=== PATIENT | male | born 1950 | race Caucasian/White ===

== ENCOUNTER 2016-08-16 09:02 | Day surgery (SDC) | payer MEDICARE, OTHER ==
[~2016-08-16 09:02] MED LIST: Lactated Ringers 1,000 ML IV SCH; Sodium Chloride 0.9% 5 ML Syringe FLUSH PRN
[2016-08-16] MEDS ORDERED: fentaNYL 100 MCG/2 ML SDV ONE (09:37)
[2016-08-16] MEDS ORDERED: Propofol 200 MG/20 ML SDV ONE (09:37)
[2016-08-16] MEDS ORDERED: Midazolam 1 MG/ML 2 ML SDV ONE (09:37)
[2016-08-16] MEDS ORDERED: Ketamine 500 mg/10 ML MDV ONE (09:37)
[2016-08-16] MEDS ORDERED: Neostigmine Methylsulfate 10 MG/10 ML MDV ONE (09:37)
[2016-08-16] MEDS ORDERED: Lidocaine 2% Jelly 5 ML Tube ONE (10:32)
[2016-08-16] MEDS ORDERED: ceFAZolin 1 GM Vial ONE (10:41)
[2016-08-16] MEDS ORDERED: Propofol 200 MG/20 ML SDV IV ONE (11:20)
[2016-08-16] MEDS ORDERED: Ondansetron 4 MG/2 ML SDV IV ONE (11:20)
[2016-08-16] MEDS ORDERED: Midazolam 1 MG/ML 2 ML SDV IV ONE (11:20)
[2016-08-16] MEDS ORDERED: ceFAZolin 1 GM Vial IV ONE (11:20)
[2016-08-16] MEDS ORDERED: fentaNYL 100 MCG/2 ML SDV IV ONE (11:20)
[2016-08-16] MEDS ORDERED: Lidocaine 2% Jelly 10 ML Urojet ONE (11:45)
--- NOTE | 2016-08-16 11:56 | PCM.OPNOTE ---
- General Post-Op/Procedure Note Date of Surgery/Procedure: 08/16/16 Pre Op Diagnosis: Urinary symptom suggestive of frequency dysuria and a feeling of obstruction with suprapubic catheter in place for neurogenic bladder. Post-Op Diagnosis: Fairly normal cystoscopy except for moderate trilobar enlargement of the prostate. Suprapubic catheter is in place. Primary Surgeon: Brenda Ferreira Condition: Good Free Text/Narrative:: Dictated
[2016-08-16 15:02] VITALS: BP 118/73
--- NOTE | 2016-08-17 09:11 | OR ---
DATE OF SURGERY: 08/16/2016 SURGEON: Brenda Ferreira MD PREOPERATIVE DIAGNOSIS: The patient has a suprapubic catheter in place. The patient has frequent episodes of dysuria and frequency urination and urinary tract infection. Cystoscopy is being accomplished to rule out pathology within the bladder. DESCRIPTION OF PROCEDURE: Informed consent was obtained from the patient. All possible complications discussed with the patient, taken to OR and given a satisfactory anesthetic. He was then kept in lithotomy position. His genitals were thoroughly prepped and draped in usual fashion. Cystoscopy was accomplished using a 17-S[place] Arabian obturator sheath and Anam Zeiss cystoscope. There was evidence of moderate trilobar enlargement of prostate. There was evidence of previous TURP. The scope was introduced into the bladder. The bladder mucosa was completely normal. The indwelling Gonzalez catheter was seen. No complications encountered. There was no significant debris or any significant infection. Scope was then removed. The patient tolerated procedure well. FINAL DIAGNOSIS: Fairly normal cystoscopy. The patient symptoms of frequency, urgency, and feeling like something is stuck in the bladder are not necessarily coming from the urological system. One has to make sure that the patient's bowels are being evacuated regularly especially since he is on opioids etc. There may be some rectal impaction on the bladder. /[id number]/MODL
== END 2016-08-16 13:55 ==
LOC: KA.SDS 09:02
PROVIDERS: ATTEND Family Medicine
DX: N40.1 Benign prostatic hyperplasia with lower urinary tract symptoms (principal); R35.0 Frequency of micturition; R30.0 Dysuria; R82.71 Bacteriuria; I10 Essential (primary) hypertension; Z79.82 Long term (current) use of aspirin; Z79.899 Other long term (current) drug therapy
CPT/HCPCS: 52000; J0690; J2250; J2405; J2704; J3010; J7120; 00910

== ENCOUNTER 2018-04-22 10:53 | Emergency (ER) | payer MEDICARE, MEDICAID ==
[2018-04-22 11:09] VITALS: BP 135/66
[2018-04-22] MEDS ORDERED: Sodium Chloride 0.9% 10 ML Syringe FLUSH PRN (11:29)
[2018-04-22] MEDS ORDERED: Albuterol/Ipratropium 3.0-0.5 MG/3 ML Neb Soln NEB ONE (11:51)
--- NOTE | 2018-04-22 12:41 | EDM.PDOC ---
ED HPI GENERAL MEDICAL PROBLEM - General Chief Complaint: General Stated Complaint: LOW SATS.. Time Seen by Provider: 04/22/18 11:23 Source of Information: Reports: Patient History Limitations: Reports: No Limitations - History of Present Illness INITIAL COMMENTS - FREE TEXT/NARRATIVE: Patient is 68-year-old gentleman who presents to the emergency department from nursing facility with a complaint of shortness of breath, sounds on the left, and low oxygen saturation. Patient underwent left lung needle biopsy and subsequent anterior smallbore chest tube insertion at [facility] on 2018. Chest tube was removed yesterday and patient was discharged. This morning per retirement nurse, patient felt short of breath, oxygen saturations were noted to be high 80s, and left lung sounds were diminished. Patient was therefore transferred to ER. Patient denies chest pain, headache, fever, nausea, vomiting, diarrhea, or abdominal pain Onset: Today Duration: Hour(s): Location: Reports: Chest Severity: Mild Improves with: Reports: None Worsens with: Reports: None Context: Denies: Trauma Associated Symptoms: Reports: Shortness of Breath - Related Data Allergies Allergy/AdvReac Type Severity Reaction Status Date / Time No Known Drug Allergies Allergy Unknown Other Verified 04/22/18 11:09 Home Meds: Home Meds Allopurinol [Zyloprim] 300 mg PO DAILY 03/16/13 [History] Carvedilol 12.5 mg PO BIDMEALS 03/16/13 [History] Citalopram [Citalopram HBr] 20 mg PO DAILY 03/16/13 [History] Folic Acid 1 mg PO DAILY 03/16/13 [History] Multivitamin with Minerals [Multiple Vitamin] 1 tab PO BEDTIME 03/16/13 [History ] amLODIPine Besylate [Norvasc] 2.5 mg PO DAILY 03/16/13 [History] Cholecalciferol (Vitamin D3) [Vitamin D3] 2,000 unit PO DAILY 06/06/13 [History] Nitrofurantoin Monohyd/M-Cryst [Macrobid 100 mg Capsule] 100 mg PO DAILY [History] Calcium Carbonate [Tums Extra Strength] 750 mg PO BIDMEALS 05/13/15 [History] Gabapentin [Neurontin] 900 mg PO BEDTIME 01/30/16 [History] Sennosides [Senna] 8.6 mg PO BID 01/30/16 [History] Aspirin 81 mg PO BEDTIME 02/04/16 [History] Donepezil [Aricept] 5 mg PO BEDTIME 10/20/16 [History] Lenalidomide [Revlimid] 5 mg PO ASDIRECTED 10/20/16 [History] Gabapentin [Neurontin] 300 mg PO QAM 06/29/17 [History] Polyethylene Glycol 3350 [MiraLAX] 17 gm PO Q2D 06/29/17 [History] fentaNYL [Duragesic] 75 mcg TOP Q72H 06/29/17 [History] Acetaminophen [Arthritis Pain Relief] 650 mg PO BID 03/06/18 [History] Lubiprostone [Amitiza] 8 mcg PO BIDMEALS 03/06/18 [History] traMADol [Ultram] 50 mg PO Q6H PRN 03/06/18 [History] Past Medical History - Past Health History Medical/Surgical History: Denies Medical/Surgical History HEENT History: Reports: Hard of Hearing, Impaired Vision Other HEENT History: glasses Cardiovascular History: Reports: High Cholesterol, Hypertension Respiratory History: Reports: COPD, Pneumonia, Recurrent, SOB Gastrointestinal History: Reports: Chronic Constipation, GERD, Hemorrhoids Genitourinary History: Reports: Pyelonephritis, Other (See Below) Other Genitourinary History: suprapubic cath due to history of stroke. 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 - Infectious Disease History Infectious Disease History: Reports: Chicken Pox, Influenza, Measles - Past Surgical History HEENT Surgical History: Reports: None Cardiovascular Surgical History: Reports: None Respiratory Surgical History: Reports: None GI Surgical History: Reports: Colonoscopy Male Surgical History: Reports: Suprapubic Catheter Placement Other Male Surgeries/Procedures: suprapubic cath Neurological Surgical History: Reports: None Musculoskeletal Surgical History: Reports: Other (See Below) Other Musculoskeletal Surgeries/Procedures:: Foot drop to left with brace Social & Family History - Family History Family Medical History: Noncontributory Cardiac: Reports: CA Neurological: Reports: Alzheimers Disease, Dementia Hematologic: Reports: None Immunologic: Reports: None Dermatologic: Reports: None Oncologic: Reports: None - Caffeine Use Caffeine Use: Reports: Coffee, Soda - Living Situation & Occupation Living situation: Reports: Occupation: Disabled ED ROS GENERAL - Review of Systems Review Of Systems: ROS reveals no pertinent complaints other than HPI. Constitutional: Reports: No Symptoms HEENT: Reports: No Symptoms Respiratory: Reports: Shortness of Breath, Pleuritic Chest Pain Cardiovascular: Reports: No Symptoms Endocrine: Reports: No Symptoms GI/Abdominal: Reports: No Symptoms : Reports: No Symptoms Musculoskeletal: Reports: No Symptoms Skin: Reports: No Symptoms Neurological: Reports: No Symptoms Psychiatric: Reports: No Symptoms Hematologic/Lymphatic: Reports: No Symptoms Immunologic: Reports: No Symptoms ED EXAM, GENERAL - Physical Exam Exam: See Below Exam Limited By: No Limitations General Appearance: Alert, WD/WN, No Apparent Distress Throat/Mouth: Normal Inspection, Normal Oropharynx, No Airway Compromise Head: Atraumatic, Normocephalic Neck: Normal Inspection, Supple, Non-Tender, Full Range of Motion, Other (No crepitus above clavicles) Respiratory/Chest: No Respiratory Distress, Decreased Breath Sounds (On left), Wheezing (Left long. Apical), Other (There is a small 2 cm incision at the left second intercostal space, which was site of Seldinger Small-Bore Chest Tube previously placed. No crepitus at site noted) GI/Abdominal: Normal Bowel Sounds, Soft, Non-Tender Extremities: Normal Inspection Neurological: Alert, Oriented, Normal Cognition Psychiatric: Normal Affect, Normal Mood Skin Exam: Warm, Dry, Intact, Normal Color, No Rash ED GENERAL MEDICAL PROCEDURES - Additional/Other Procedure(s) Other (Free Text) Procedure(s): Under sterile techniques, left axilla was prepped and draped. 1% Percent lidocaine with epinephrine on 25-gauge needle was used on the insertion path of the chest tube. A 3 cm transverse incision was made through the overlying subcutaneous tissue and intercostal space. Blunt dissection with Nicole clamp was performed on the superior aspect of the rib. Lateral space was entered and confirmed with finger. Chest tube was inserted into the pleural space, and confirmed with chest tube condensation. Chest tube was secured to skin with 3- 0 nylon suture. Clamp was removed and chest tube was attached to dry suction. Petroleum gauze and 4 x 4 gauze applied. Patient tolerated the procedure well Course - Vital Signs Last Recorded V/S: Last Vital Signs Temp 98.5 F 04/22/18 11:04 Pulse 70 04/22/18 11:04 Resp 20 04/22/18 11:04 BP 135/66 04/22/18 11:04 Pulse Ox 91 L 04/22/18 11:04 - Orders/Labs/Meds Orders: Active Orders 24 hr Category Date Time Status Peripheral IV Care [RC] . DIRECTED Care 04/22/18 11:29 Ordered RT Aerosol Therapy [RC] ASDIRECTED Care 04/22/18 11:51 Ordered Chest w Cont [CT] Stat Exams 04/22/18 11:24 Ordered Sodium Chloride 0.9% [Saline Flush] Med 04/22/18 11:29 Ordered 10 ml FLUSH Q8HR PRN Peripheral IV Insertion Adult [OM.PC] Routine Oth 04/22/18 11:29 Ordered Medication Orders Sodium Chloride (Saline Flush) 10 ml FLUSH Q8HR PRN PRN Reason: keep vein open Meds: Medications Generic Name Dose Route Start Last Admin Trade Name Freq PRN Reason Stop Dose Admin Sodium Chloride 10 ml 04/22/18 11:29 Saline Flush FLUSH Q8HR PRN keep vein open Discontinued Medications Generic Name Dose Route Start Last Admin Trade Name Freq PRN Reason Stop Dose Admin Albuterol/Ipratropium 3 ml 04/22/18 11:51 Duoneb 3.0-0.5 Mg/3 Ml NEB 04/22/18 11:52 ONETIME ONE - Radiology Interpretation Free Text/Narrative:: CT chest with IV contrast shows large left pneumothorax with evidence of early tension - Re-Assessments/Exams Free Text/Narrative Re-Assessment/Exam: 04/22/18 13:[address] Guallpa from [facility]. Advised post chest tube insertion to transfer patient there via [facility] ambulance 04/22/18 13:20 Lab work not performed as blood work was ready obtained yesterday at [facility] Chest tube was placed and confirmed with one view chest x-ray. Patient was transferred via [facility] to [facility]. Patient tolerated procedure well 04/22/18 14:58 Departure - Departure Time of Disposition: 14:58 Disposition: DC/Tfer to Acute Hospital 02 Condition: Serious Clinical Impression: Tension pneumothorax - Discharge Information Referrals: Mohamud Ring [employer] [Primary Care Provider] - - My Orders Last 24 Hours: My Active Orders 04/22/18 11:24 Chest w Cont [CT] Stat 04/22/18 11:29 Peripheral IV Care [RC] . DIRECTED Sodium Chloride 0.9% [Saline Flush] 10 ml FLUSH Q8HR PRN Peripheral IV Insertion Adult [OM.PC] Routine 04/22/18 11:51 RT Aerosol Therapy [RC] ASDIRECTED - Assessment/Plan Last 24 Hours: My Active Orders 04/22/18 11:24 Chest w Cont [CT] Stat 04/22/18 11:29 Peripheral IV Care [RC] . DIRECTED Sodium Chloride 0.9% [Saline Flush] 10 ml FLUSH Q8HR PRN Peripheral IV Insertion Adult [OM.PC] Routine 04/22/18 11:51 RT Aerosol Therapy [RC] ASDIRECTED
[2018-04-22] MEDS: Iopamidol 755 Mg/ML 75 ML Bottle IVPUSH ONE ×3 (12:43→12:48)
[2018-04-22] MEDS: Sodium Chloride 0.9% 50 ML IV ONE ×2 (12:43→12:49)
--- NOTE | 2018-04-22 12:43 | CT ---
[id number] CT/CT Chest W IV EXAM: CHEST CT WITH CONTRAST INDICATION: Post chest tube removal with complicated left lung. COMPARISON: January 15, [address] DISCUSSION: There is a large left-sided pneumothorax with rightward shift of the mediastinum consistent with developing tension. There is significant associated volume loss in the left lung limiting assessment of the parenchyma. On the right there is subsegmental atelectasis scattered throughout the lung and there are mild to moderate apical predominant emphysematous changes. Coronary calcifications. Normal heart size. Multiple right renal cysts. Imaged upper abdomen is otherwise unremarkable. There are numerous scattered lytic bone lesions some which have sclerotic rims which are similar to the previous examination. Multiple thoracic compression fractures ranging from mild to moderate are also similar to the prior study as are multiple chronic rib fractures. Results called at time of dictation. IMPRESSION: 1. Large left pneumothorax with evidence of early tension. Mc Uriostegui MD 04/22/18 [id number] Thank you for allowing us to participate in the care of your patient.
[2018-04-22] MEDS ORDERED: Iopamidol 755 Mg/ML 75 ML Bottle IVPUSH ONE (12:45)
[2018-04-22] MEDS ORDERED: fentaNYL 100 MCG/2 ML SDV ONE (13:39)
[2018-04-22] MEDS ORDERED: Midazolam 1 MG/ML 2 ML SDV ONE (13:40)
[2018-04-22] MEDS ORDERED: Ketamine 500 mg/10 ML MDV ONE (13:44)
[2018-04-22] MEDS ORDERED: Lidocaine 1% with EPINEPHrine 1:100,000 20 ML MDV ONE (13:51)
[2018-04-22] MEDS ORDERED: Ketamine 500 mg/10 ML MDV IV ONE (14:00)
[2018-04-22] MEDS ORDERED: fentaNYL 100 MCG/2 ML SDV IV ONE (14:00)
[2018-04-22] MEDS ORDERED: Midazolam 1 MG/ML 2 ML SDV IV ONE (14:00)
--- NOTE | 2018-04-22 15:13 | CR ---
[id number] RAD/RAD Chest Portable EXAM: PORTABLE CHEST INDICATION: Chest tube placement. COMPARISON: CT earlier same date. DISCUSSION: Interval left thoracostomy tube placement tip positioned over the medial aspect of the left hemithorax. No significant residual pneumothorax or mediastinal shift is identified on this portable examination. The lungs are hypoinflated with left greater than right base subsegmental atelectasis. Chronic left rib fractures are unchanged. IMPRESSION: 1. Left thoracostomy tube placement with resolution of a left-sided pneumothorax. Mc Uriostegui MD 04/22/18 [id number] Thank you for allowing us to participate in the care of your patient.
[2018-04-22] MEDS ORDERED: Lidocaine 1% with EPINEPHrine 1:100,000 20 ML MDV INJECT ONE (21:03)
== END 2018-04-22 15:00 ==
LOC: KA.ED 10:53
DX: J93.0 Spontaneous tension pneumothorax (principal); E78.00 Pure hypercholesterolemia, unspecified; I10 Essential (primary) hypertension; J44.9 Chronic obstructive pulmonary disease, unspecified; K21.9 Gastro-esophageal reflux disease without esophagitis; Z86.73 Personal history of transient ischemic attack (TIA), and cerebral infarction without residual deficits; F32.9 Major depressive disorder, single episode, unspecified; Z79.82 Long term (current) use of aspirin; Z79.891 Long term (current) use of opiate analgesic; Z79.899 Other long term (current) drug therapy; Z98.890 Other specified postprocedural states; Z87.891 Personal history of nicotine dependence
CPT/HCPCS: 71045; 71260; 99284; 99285; J2250; J3010; J7050; J7620-GY; Q9967

== ENCOUNTER 2022-01-11 18:00 | Inpatient (IN) | payer MEDICARE, MEDICAID ==
[2022-01-11] MEDS ORDERED: cefTRIAXone 2 GM Vial IVPUSH ONE (19:05)
[2022-01-11] MEDS ORDERED: Azithromycin 500 MG in Sodium Chloride 0.9% 250 ML IV ONE (19:15)
[2022-01-11] MEDS ORDERED: Sodium Chloride 0.9% 10 ML Syringe IV PRN (22:00)
[2022-01-11] MEDS ORDERED: Carvedilol 12.5 MG Tab PO ONE (22:50)
[2022-01-11] MEDS ORDERED: fentaNYL 75 MCG/HR Transdermal Patch TRDERM ONE (22:50)
[2022-01-11] MEDS ORDERED: Gabapentin 300 MG Cap PO ONE (22:50)
[2022-01-11] MEDS ORDERED: Donepezil 10 MG Tab PO ONE (22:50)
[2022-01-11] MEDS ORDERED: Sodium Chloride 0.9% 500 ML IV ONE (22:50)
[2022-01-11] MEDS ORDERED: Baclofen 10 MG Tab PO ONE (22:50)
[2022-01-12] MEDS ORDERED: Folic Acid 1 MG Tab PO ONE (10:15)
[2022-01-12] MEDS ORDERED: Citalopram 20 MG Tab PO ONE (10:15)
[2022-01-12] MEDS ORDERED: Allopurinol 100 MG Tab PO ONE (10:15)
[2022-01-12] MEDS ORDERED: amLODIPine 2.5 MG Tab PO ONE (10:15)
[2022-01-12] MEDS ORDERED: Enoxaparin 40 MG/0.4 ML Syringe SUBCUT ONE (13:45)
[2022-01-12] MEDS ORDERED: cefTRIAXone 1 GM Vial IVPUSH ONE (19:45)
[2022-01-12] MEDS ORDERED: Azithromycin 500 MG in Sodium Chloride 0.9% 250 ML IV ONE (19:45)
[2022-01-12] MEDS ORDERED: Nystatin Topical Powder 15 GM Bottle TOP ONE (21:00)
[2022-01-12] MEDS ORDERED: Donepezil 10 MG Tab PO ONE (21:00)
[2022-01-13] MEDS ORDERED: Pantoprazole 20 MG Tab, Delayed Release PO ONE (09:50)
[2022-01-13] MEDS ORDERED: Albuterol/Ipratropium 3.0-0.5 MG/3 ML Neb Soln INH ONE (11:45)
[2022-01-13] MEDS ORDERED: Potassium Chloride 20 MEQ Tab.ER PO ONE (13:40)
[2022-01-13] MEDS ORDERED: Sodium Chloride 0.9% 50 ML IV ONE (19:15)
[2022-01-28] MEDS ORDERED: Donepezil 10 MG Tab PO ONE (22:50)
[2022-01-29 11:01] LABS: ANION GAP 12.9 mmol/L (5-15); CHLORIDE,CL 100 mmol/L (98-115); ESTIMATED GFR 66 mL/min (>=60); SODIUM,NA 138 mmol/L (136-145)
[2022-01-29 12:56] LABS: ANION GAP 10.2 mmol/L (5-15); CHLORIDE,CL 102 mmol/L (98-115); ESTIMATED GFR 77 mL/min (>=60); SODIUM,NA 139 mmol/L (136-145)
[2022-01-31 11:08] LABS: ANION GAP 9.9 mmol/L (5-15); CHLORIDE,CL 101 mmol/L (98-115); SODIUM,NA 137 mmol/L (136-145)
[2022-01-31 11:09] LABS: ESTIMATED GFR 80 mL/min (>=60)
[2022-01-31 11:53] LABS: CHLORIDE,CL 103 mmol/L (98-115); SODIUM,NA 139 mmol/L (136-145)
[2022-01-31 11:57] LABS: ANION GAP 10.4 mmol/L (5-15); ESTIMATED GFR 91 mL/min (>=60)
== END 2022-01-14 13:14 | DRG 193 ==
LOC: KA.ED 18:00 → KA.ZCENSUS 20:05
PROVIDERS: ADMIT Physician Assistant Surgical; ATTEND Student in an Organized Health Care Education/Training Program
DX: J18.9 Pneumonia, unspecified organism (principal); J96.01 Acute respiratory failure with hypoxia; N39.0 Urinary tract infection, site not specified; C90.00 Multiple myeloma not having achieved remission; C90.30 Solitary plasmacytoma not having achieved remission; C34.12 Malignant neoplasm of upper lobe, left bronchus or lung; F33.9 Major depressive disorder, recurrent, unspecified; N13.8 Other obstructive and reflux uropathy; D72.829 Elevated white blood cell count, unspecified; Z66 Do not resuscitate; R79.89 Other specified abnormal findings of blood chemistry; E87.6 Hypokalemia; I10 Essential (primary) hypertension; M1A.00X0 Idiopathic chronic gout, unspecified site, without tophus (tophi); F03.90 Unspecified dementia, unspecified severity, without behavioral disturbance, psychotic disturbance, mood disturbance, and anxiety; K59.03 Drug induced constipation; K21.9 Gastro-esophageal reflux disease without esophagitis; N40.3 Nodular prostate with lower urinary tract symptoms; Z96.0 Presence of urogenital implants; G89.29 Other chronic pain; M85.80 Other specified disorders of bone density and structure, unspecified site; Z87.440 Personal history of urinary (tract) infections; Z86.73 Personal history of transient ischemic attack (TIA), and cerebral infarction without residual deficits
CPT/HCPCS: 36415; 71045; 80048; 80053; 81001; 83605; 83735; 83880; 84484; 85025; 86140; 87040; 87086; 87088; 93005; 93010; 96374; 96375; 99284; 99285-25; A9270-GY; J0456; J0696; J1650; J7040; J7050; J7620-GY

== ENCOUNTER 2023-07-08 19:06 | Emergency (ER) | payer MEDICARE ==
[2023-07-08] MEDS: Albuterol/Ipratropium 3.0-0.5 MG/3 ML Neb Soln NEB ONE ×2 (19:20→21:27)
[2023-07-08] MEDS: Albuterol/Ipratropium 3.0-0.5 MG/3 ML Neb Soln ONE (19:20)
[2023-07-08] MEDS ORDERED: Sodium Chloride 0.9% 10 ML Syringe FLUSH PRN (19:26)
[2023-07-08 19:48] LABS: BASOPHILS ABSOLUTE AUTO 0.06 10^3/uL (0.00-0.10); BASOPHILS PERCENT AUTO 0.5 % (0.0-1.0); EOSINOPHILS ABSOLUTE AUTO 0.45 10^3/uL (0.10-0.30); EOSINOPHILS PERCENT AUTO 3.4 % (1.0-3.0); HEMATOCRIT 43.5 % (40.0-52.0); HEMOGLOBIN 14.1 g/dL (13.0-17.0); IMMATURE GRAN ABSOLUTE AUTO 0.12 10^3/uL (0.00-0.50); IMMATURE GRAN PERCENT AUTO 0.9 % (0.0-5.0); LYMPHOCYTES ABSOLUTE AUTO 2.62 10^3/uL (1.00-4.00); MEAN CORPUSCULAR HEMOGLOBIN 32.1 pg (27.0-31.0); MEAN CORPUSCULAR HGB CONC 32.4 g/dL (32.0-36.0); MEAN CORPUSCULAR VOLUME 99.1 fL (82.0-92.0); MEAN PLATELET VOLUME 9.8 fL (7.4-10.4); MONOCYTES ABSOLUTE AUTO 2.02 10^3/uL (0.10-0.80); MONOCYTES PERCENT AUTO 15.4 % (2.0-8.0); NEUTROPHILS ABSOLUTE AUTO 7.82 10^3/uL (2.50-7.00); NEUTROPHILS PERCENT AUTO 59.8 % (50.0-70.0); PLATELET COUNT,PLT 530 10^3/uL (150-400); RED BLOOD CELL COUNT 4.39 10^6/uL (4.50-6.00); RED CELL DISTRIBUTION WIDTH 14.4 % (11.5-14.5); WHITE BLOOD CELL COUNT,WBC 13.09 10^3/uL (5.00-10.00)
[2023-07-08] MEDS: Acetylcysteine 20% 200 MG/ML 30 ML Nebulizer Soln SDV NEB SCH (20:01)
[2023-07-08] MEDS: Sodium Chloride 0.9% 1,000 ML IV ONE (20:04)
[2023-07-08 20:07] LABS: ALANINE AMINOTRANSFERASE,ALT 19 U/L (14-63); ALBUMIN 3.18 g/dL (3.40-5.00); ALKALINE PHOSPHATASE 60 U/L (46-116); ANION GAP 13.8 mmol/L (5-15); ASPARTATE AMNIOTRANSFERASE,AST 15 U/L (15-37); BILIRUBIN TOTAL 0.3 mg/dL (0.2-1.0); BLOOD UREA NITROGEN,BUN 20 mg/dL (7-18); CALCIUM 8.6 mg/dL (8.7-10.3); CARBON DIOXIDE,CO2 27.7 mmol/L (21.0-32.0); CHLORIDE,CL 104 mmol/L (98-107); CREATININE 0.85 mg/dL (0.51-1.17); GLUCOSE RANDOM 95 mg/dL (70-140); POTASSIUM,K 4.5 mmol/L (3.5-5.1); SODIUM,NA 141 mmol/L (136-145)
[2023-07-08 20:12] LABS: ESTIMATED GFR 92 mL/min (>=60)
[2023-07-08] MEDS: Piperacillin/Tazobactam 4.5 GM in Sodium Chloride 0.9% 100 ML IV ONE (20:20)
[2023-07-08] MEDS: LORazepam 2 MG/ML SDV IVPUSH ONE (22:06)
[2023-07-08] MEDS: Sodium Chloride 0.9% 1,000 ML IV SCH (22:34)
[2023-07-08 22:35] VITALS: BP 168/84; PULSE 122
== END 2023-07-08 22:45 ==
LOC: KA.ED 19:06
DX: J69.0 Pneumonitis due to inhalation of food and vomit (principal); T17.928A Food in respiratory tract, part unspecified causing other injury, initial encounter; I10 Essential (primary) hypertension; K21.9 Gastro-esophageal reflux disease without esophagitis; Z86.73 Personal history of transient ischemic attack (TIA), and cerebral infarction without residual deficits; Z79.82 Long term (current) use of aspirin; Z79.899 Other long term (current) drug therapy
CPT/HCPCS: 36415; 71045; 80053; 83605; 83880; 84484; 85025; 93005; 94640; 96361; 96365; 96375; 99285-25; A9270-GY; J2060; J2543; J3490; J7030; J7620-GY